=== PATIENT | female | born 1990 | race Caucasian/White ===

== ENCOUNTER 2025-07-09 00:55 | Emergency (ER) | payer SELFPAY ==
[~2025-07-09] VITALS: Ht 152.4 cm; Wt 66.0 kg
[2025-07-09 01:07] VITALS: O2SAT 99
[2025-07-09 01:33] LABS: BASOPHILS % 0.9 % (0.0-2.0); EOSINOPHILS % 1.5 % (0.0-5.0); HEMATOCRIT. 41.0 % (36.0-48.0); HEMOGLOBIN. 13.6 g/dL (12.0-16.0); LYMPHOCYTES % 46.4 % (20.0-50.0); MEAN PLATELET VOLUME 9.5 fl (7.4-10.4); MONOCYTES % 8.4 % (2.0-8.0); NEUTROPHILS % 42.8 % (40.0-76.0); PLATELET 220 x1000/uL (130-400); RED BLOOD CELL COUNT 4.42 mill/uL (4.2-5.4); RED CELL DISTRIBUTION WIDTH 12.8 % (11.6-14.6)
[2025-07-09 01:51] LABS: CLARITY URINE CLEAR (CLEAR); COLOR URINE YELLOW (YELLOW); GLUCOSE URINE NEGATIVE (NEGATIVE); KETONES URINE NEGATIVE (NEGATIVE); LEUKOCYTE ESTERASE URINE 2+ (NEGATIVE); NITRITE URINE NEGATIVE (NEGATIVE); OCCULT BLOOD URINE TRACE (NEGATIVE); PH URINE 6.5 (4.5-8.0); PROTEIN URINE NEGATIVE (NEGATIVE); SPECIFIC GRAVITY URINE 1.014 (1.005-1.030); UROBILINOGEN URINE 0.2 E.U./dL (0.2-1.0)
[2025-07-09 01:52] LABS: CREATININE 1.0 mg/dL (0.6-1.0); PROTEIN TOTAL 7.5 g/dL (6.0-8.3); UREA NITROGEN BLOOD 15 mg/dL (9-23)
[2025-07-09 01:53] LABS: ASPARTATE AMINOTRANSFERASE 23 IU/L (<34); BILIRUBIN DIRECT < 0.1 mg/dL (<=3.0)
[2025-07-09 01:54] LABS: BILIRUBIN TOTAL 0.2 mg/dL (0.1-1.0)
[2025-07-09 01:55] LABS: HCG SCREEN NEGATIVE
[2025-07-09 02:11] LABS: BACTERIA URINE 1+; SQUAMOUS EPITHELIAL CELL URINE 1+ /lpf (RARE/1+)
[2025-07-09 03:46] LABS: TROPONIN I HIGH SENSITIVITY < 4 ng/L (3.0-34)
[2025-07-09] MEDS ORDERED: NITR-87 MT (03:56)
[2025-07-09 04:02] VITALS: BP 124/84; PULSE 78; RESP 16; TEMP 36.9; O2SAT 99
== END 2025-07-09 04:07 | disposition home or self-care (01) ==
LOC: ER 00:55
DX: R07.89 Other chest pain (principal); N39.0 Urinary tract infection, site not specified; Z55.6 Problems related to health literacy
CPT/HCPCS: 36415; 71045; 80048; 80076; 81003; 81025; 84484; 84703; 85025; 93005; 99285